=== PATIENT | female | born 1990 | race Caucasian/White ===

== ENCOUNTER 2017-07-09 17:38 | Emergency (ER) | payer BC, OTHER ==
[2017-07-09] MEDS ORDERED: Bacitracin Zinc Ointment 30 gm TUBE ONE (19:47)
[2017-07-09] MEDS ORDERED: Bacitracin Zinc 1 Packet ONE (19:48)
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
== END 2017-07-09 20:28 | disposition home or self-care (01) ==
LOC: SCSER 17:38
DX: S16.1XXA Strain of muscle, fascia and tendon at neck level, initial encounter (principal); V43.52XA Car driver injured in collision with other type car in traffic accident, initial encounter; J45.909 Unspecified asthma, uncomplicated
CPT/HCPCS: 72125; 81025